=== PATIENT | female | born 1990 ===

== ENCOUNTER 2023-12-16 20:31 | Emergency (ER) | payer SELFPAY | END 2023-12-16 22:30 | disposition home or self-care (01) | LOC: MW.ED 20:31 | DX: M79.631 Pain in right forearm (principal); Z75.8 Other problems related to medical facilities and other health care; Z88.1 Allergy status to other antibiotic agents | CPT/HCPCS: 73090-26-RT; 73090-RT; 73110-26-RT; 73110-RT; 73130-26-RT; 73130-RT; 99283 ==

== ENCOUNTER 2025-02-11 13:08 | Emergency (ER) | payer SELFPAY | END 2025-02-22 13:11 | disposition left against medical advice (07) | LOC: MW.ED 13:08 | DX: Z53.21 Procedure and treatment not carried out due to patient leaving prior to being seen by health care provider (principal) ==